=== PATIENT | female | born 1995 ===

== ENCOUNTER 2017-07-03 21:36 | Emergency (ER) | payer SELFPAY ==
[2017-07-03 21:37] VITALS: BMI 28.9
[2017-07-03 22:02] VITALS: BP 116/73; PULSE 78; RESP 20; TEMP 98; O2SAT 98
--- NOTE | 2017-07-03 22:32 | C.PDOC ---
History Of Present Illness 22 year old female who presents to the ER with a complaint of right sided lower back pain since yesterday. Pain aggravated by movement. (-) change in sensation (-) urinary/bowel incontinence. Denies dysuria, frequency, heavy lifting, or recent trauma/injury. Time Seen by Provider: 07/03/17 21:59 Chief Complaint (Nursing): Back Pain History Per: Patient, Family History/Exam Limitations: no limitations Onset/Duration Of Symptoms: Days Current Symptoms Are (Timing): Still Present Quality Of Discomfort: "Pain" Previous Symptoms: None Associated Symptoms: None Exacerbating Factor(s): Movement Recent travel outside of the [place] States: No Past Medical History Reviewed: Historical Data, Nursing Documentation, Vital Signs Vital Signs: Last Vital Signs Temp 98 F 07/03/17 21:40 Pulse 78 07/03/17 21:40 Resp 20 07/03/17 21:40 BP 116/73 07/03/17 21:40 Pulse Ox 98 07/03/17 23:01 - Medical History PMH: Asthma - [facility] Procedures DELIVERY OF PRODUCTS OF CONCEPTION, EXTERNAL APPROACH (01/29/17) MONITORING OF POC, CARDIAC RATE, CHANGE MANAGEMENT LEAD APPROACH (01/29/17) REPAIR VAGINA, EXTERNAL APPROACH (01/29/17) Family History: States: Unknown Family Hx - Social History Hx Alcohol Use: No Hx Substance Use: No - Immunization History Hx Tetanus Toxoid Vaccination: No Hx Influenza Vaccination: Yes Hx Pneumococcal Vaccination: No Review Of Systems Genitourinary: Negative for: Dysuria, Frequency, Incontinence, Hematuria Musculoskeletal: Positive for: Back Pain. Negative for: Leg Pain Physical Exam - Physical Exam Appears: Non-toxic, Other (uncomfortable) Skin: Normal Color, Warm, Dry Head: Atraumatic, Normacephalic Eye(s): bilateral: Normal Inspection, EOMI Nose: Normal Oral Mucosa: Moist Neck: Normal ROM, Supple Chest: Symmetrical Cardiovascular: Rhythm Regular Respiratory: Normal Breath Sounds Gastrointestinal/Abdominal: Soft, No Tenderness Back: No CVA Tenderness, No Vertebral Tenderness, Paraspinal Tenderness (Right) Extremity: Normal ROM (x4), No Tenderness Extremity: Bilateral: Atraumatic, Normal Color And Temperature Neurological/Psych: Oriented x3, Normal Speech, Normal Cognition, Normal Motor, Normal Sensation ED Course And Treatment O2 Sat by Pulse Oximetry: 98 (Room air) Pulse Ox Interpretation: Normal Progress Note: Urinalysis and lumbar spine x-ray ordered. Flexeril and toradol administered. On re-evaluation, patient is resting comfortably, abdomen remains soft, and patient is tolerating PO. Disposition - Disposition Referrals: Non [facility] Provider, [Primary Care Provider] - Disposition: HOME/ ROUTINE Disposition Time: 23:00 Condition: STABLE Additional Instructions: Vaya a lassiter mdico o la clnica en 2-5 omalley sin falta, para mas evaluacin. [place] los medicamentos shamir indicado. Volver a la jessica de emergencia en cualquier momento si los sntomas persisten o empeoran. Prescriptions: Cyclobenzaprine [Cyclobenzaprine HCl] 10 mg PO TID #20 tab Naproxen [Naprosyn] 1 tab PO BID PRN #20 tab PRN Reason: Pain Instructions: Acute Low Back Pain (ED) Forms: [employer] (Vietnamese) Print Language: MAORI - Clinical Impression Clinical Impression: Low back strain - Scribe Statement The provider has reviewed the documentation as recorded by the Scribe Paulino Dickson All medical record entries made by the Scribe were at my direction and personally dictated by me. I have reviewed the chart and agree that the record accurately reflects my personal performance of the history, physical exam, medical decision making, and the department course for this patient. I have also personally directed, reviewed, and agree with the discharge instructions and disposition.
[2017-07-03 22:46] LABS: RBC URINE < 1 /hpf (0-3); URINE BILIRUBIN NEGATIVE (NEGATIVE); URINE BLOOD NEGATIVE (NEGATIVE); URINE COLOR Straw (YELLOW); URINE GLUCOSE (UA) NORMAL (Normal); URINE KETONE NEGATIVE (NEGATIVE); URINE LEUKOCYTE ESTERASE NEG Leu/uL (Negative); URINE PROTEIN NEGATIVE (NEGATIVE); URINE UROBILINOGEN NORMAL mg/dL (0.2-1.0); WBC URINE 1 /hpf (0-5)
--- NOTE | 2017-07-04 08:18 | RAD ---
PROCEDURE: Radiographs of the Lumbar Spine. HISTORY: pain COMPARISON: No prior. FINDINGS: BONES: Minimal spondylolisthesis seen at L5-S1 with L5 slightly posterior S1. Normal lordotic curvature is appreciated there is no fracture identified throughout. No suspicious lytic or blastic change. Vertebral body heights are normal throughout. DISC SPACES: Unremarkable. OTHER FINDINGS: None. IMPRESSION: Minimal grade 1 spondylolisthesis L5-S1. No fracture appreciable. MRI may be useful for further characterization if clinically warranted.
== END 2017-07-03 23:21 | disposition home or self-care (01) ==
LOC: C.ER 21:36 → SUPCPDRO 21:36 → C.ER 23:21
DX: S39.012A Strain of muscle, fascia and tendon of lower back, initial encounter (principal); X58.XXXA Exposure to other specified factors, initial encounter; Y92.9 Unspecified place or not applicable
CPT/HCPCS: 72100; 81001; 84703; 96372; 99283; J1885